=== PATIENT | male | born 1990 | race Caucasian/White ===

== ENCOUNTER → 2024-03-01 | Outpatient (CLI) | payer BC, SELFPAY ==
--- NOTE | 2024-03-01 14:05 | RAD_ITS ---
STUDY: X-RAY - ORBITS REASON FOR EXAM: Male, 33 years old. MRI clearance TECHNIQUE: 2 view(s) of the orbits were obtained. COMPARISON: None. FINDINGS: Normal bilateral orbits without a metallic orbital foreign body. Normal visualized facial bones. Normal paranasal sinuses. The soft tissue structures are unremarkable. RAD/Orbits for Foreign Body IMPRESSION: No demonstrated metallic orbital foreign body. The patient is cleared for an MRI examination. Electronically Signed: Phoenix Benedict MD at 14:21 EDT ,
--- NOTE | 2024-03-01 14:16 | MRI_ITS ---
STUDY: MRI UPPER EXTREMITY LEFT HUMERUS WITH T WITHOUT CONTRAST REASON FOR EXAM: Male, 33 years old. TRAUMA TO UPPER ARM TECHNIQUE: Standardized fat and water weighted pulse sequences were obtained in all 3 orthogonal planes, pre-and post contrast administration. IV 23 CC CLARISCAN was administered for the contrast portion of the examination. COMPARISON: None. FINDINGS: There is a complete ruptured tear of the biceps tendon from the radial tuberosity insertion site with retraction of 3 cm proximal to this region. The remaining aspects of the biceps tendon are intact. A mild sprain injury of the biceps musculotendinous junction is present with mild edema and swelling of the associated fibers. There is also diffuse edema and small amounts of layering fluid around the biceps tendon into the antebrachial fossa/anterior elbow joint region due to the biceps tendon tear. There is some minimal reactive enhancement of the musculotendinous junction fibers at the site of the strain injury, otherwise there is no abnormal enhancement the remaining soft tissues or bony structures. Normal visualized major vascular structures. Mild subcutaneous edema is also present in the antecubital fossa. There is no demonstrated solid, cystic, or lipomatous mass within the subcutaneous adipose space. Normal remaining visualized muscles and fascia. Normal visualized neurovascular bundles. Normal humerus. No marrow edema is present. A tiny elbow joint effusion is visualized. MRI/Upper Ext No Joint W/WO Cont IMPRESSION: 1. Complete tear of the distal aspect of the biceps tendon with retraction 3 cm proximal to the radial tuberosity. 2. Mild sprain injury of the biceps muscle at the musculotendinous junction. Electronically Signed: Kurtis Arana MD at 16:49 EDT ,
== END | disposition home or self-care (01) ==
PROVIDERS: PCP Family Medicine; Referring Provider Nurse Practitioner Primary Care; Visit Provider Nurse Practitioner Primary Care
DX: S46 Injury of muscle, fascia and tendon at shoulder and upper arm level (principal); X58.XXXA Exposure to other specified factors, initial encounter
CPT/HCPCS: 70030; 73220; A9575